=== PATIENT | male | born 1960 | race Caucasian/White ===

== ENCOUNTER → 2019-06-01 11:14 | Outpatient (CLI) | payer OTHER, SELFPAY ==
--- NOTE | 2019-06-01 | DI.MRI.S_ITS ---
PROCEDURE: MR SHOULDER RT WO CON INDICATIONS: Pain in right shoulder with decreased range of motion TECHNIQUE: Noncontrast oblique coronal T2 fast spin echo with fat saturation, oblique sagittal T1 spin echo and T2 fast spin echo with fat saturation, axial T1 spin echo and T2 fast spin echo with fat saturation through the shoulder. COMPARISON: None. FINDINGS: Image quality: Excellent. Rotator cuff: Tendinosis and low-grade articular surface and bursal surface partial-thickness tear involving distal supraspinatus and infraspinatus is seen. Tendinosis and low-grade intrasubstance partial-thickness tear involving distal subscapularis is also noted. No full-thickness rotator cuff tendon tear. Sagittal images demonstrate no significant rotator cuff muscle atrophy. Bones and bursae: No bone marrow contusions or fractures. Intraosseous cyst formation involving the posterior inferior glenoid is noted. Moderate acromioclavicular joint osteoarthritis and glenohumeral joint osteoarthritis is seen.. No pathologic subacromial-subdeltoid or subcoracoid bursal fluid is present. Capsule and soft tissues: In the absence of intra-articular contrast, there is suggestion of superior anterior labral tear from 12 to 3:00 position. There is also suggestion of inferior labral tear from 5 to 7:00 position. glenohumeral ligaments appear intact. The long head of the biceps tendon demonstrates normal location and morphology. The rotator interval appears normal, without fibrosis. The coracohumeral ligament is normal in thickness. IMPRESSION: 1. Moderate acromioclavicular joint and glenohumeral joint osteophytes. 2. Suggestion of superior anterior labral tear at 12 to 3:00 position an inferior labral tear at 5 to 7:00 position. 3. Tendinosis and low-grade articular and bursal surface partial-thickness tear involving distal supraspinatus and infraspinatus. Tendinosis and low-grade intrasubstance partial thickness involving distal subscapularis. No full-thickness rotator cuff tendon rupture. Dictated by: Cruz Cohn M.D. on 06/01/2019 at 14:41 Approved by: Cruz Cohn M.D. on 06/01/2019 at 14:45
== END ==
PROVIDERS: Visit Provider Family Medicine
DX: M25.511 Pain in right shoulder (principal); M19.011 Primary osteoarthritis, right shoulder; M25.711 Osteophyte, right shoulder
CPT/HCPCS: 73221

== ENCOUNTER → 2020-08-08 12:06 | Outpatient (CLI) | payer OTHER, SELFPAY ==
--- NOTE | 2020-08-08 | DI.US.S_ITS ---
PROCEDURE: US SCROTUM INDICATIONS: HYDROCELE UNSPECIFIED TECHNIQUE: Real-time scanning was performed of the scrotum and testicles, with image documentation. Color and pulse Doppler interrogation was performed of both testicles. COMPARISON: None. FINDINGS: Right: Testicle is normal in size at 5.0 x 3.0 x 3.0 cm, and homogenous in echotexture. Epididymis is normal in overall size and morphology. Large hydrocele.. Overlying scrotal skin is normal in thickness. Left: Testicle is normal in size at 4.8 x 4.4 x 3.1 cm, and homogeneous in echotexture. Epididymis is normal in overall size and morphology. Moderate hydrocele.. Overlying scrotal skin is normal in thickness. Doppler: Color and pulse Doppler demonstrate normal and symmetric arterial flow in both testicles. IMPRESSION: 1. Normal appearance of the testicles bilaterally. 2. Bilateral hydroceles, right greater than left. Dictated by: Vadim CANTU Interpreted: Joseph Grant MD on 08/08/2020 at 16:22 Approved by: Joseph Grant M.D. on 08/08/2020 at 17:01
== END ==
PROVIDERS: PCP Student in an Organized Health Care Education/Training Program; Referring Provider Student in an Organized Health Care Education/Training Program; Visit Provider Student in an Organized Health Care Education/Training Program
DX: N43.3 Hydrocele, unspecified (principal)
CPT/HCPCS: 76870

== ENCOUNTER → 2020-11-28 13:09 | Outpatient (CLI) | payer OTHER, SELFPAY ==
--- NOTE | 2020-11-28 | DI.RAD.S_ITS ---
PROCEDURE: FL BARIUM SWALLOW W AIR COMPARISON: None. INDICATIONS: Gastro-esophageal reflux disease without esophagitis. FINDINGS: Esophageal motility is normal. No hiatal hernia is found. Episodic slight gastroesophageal reflux was observed, extending only approximately 10 cm cephalad from the EG junction. There is no sign of esophageal erosions, inflammation, mass or stricture. The visualized upper stomach appears normal. IMPRESSION: Mild episodic spontaneous and elicited gastroesophageal reflux, without evidence of associated esophageal erosion, stricture or mass. No esophageal dysmotility is identified. The upper gastric margin visualized appears normal. Dictated by: Timothy Orr M.D. on 11/28/2020 at 14:27 Approved by: Timothy Orr M.D. on 11/28/2020 at 15:01
== END ==
PROVIDERS: PCP Student in an Organized Health Care Education/Training Program; Referring Provider Student in an Organized Health Care Education/Training Program; Visit Provider Student in an Organized Health Care Education/Training Program
DX: K21.9 Gastro-esophageal reflux disease without esophagitis (principal)
CPT/HCPCS: 74221

== ENCOUNTER → 2020-12-26 15:12 | Outpatient (CLI) | payer OTHER, SELFPAY ==
--- NOTE | 2020-12-26 15:15 | DI.RAD.S_ITS ---
PROCEDURE: XR SHOULDER LT MIN 2V INDICATIONS: LT SHOULDER PAIN TECHNIQUE: 3 views of the shoulder were acquired. COMPARISON: None. FINDINGS: Bones: No fractures or dislocations. No suspicious bony lesions. Visualized ribs appear intact. Soft tissues: No suspicious soft tissue calcifications. IMPRESSION: No acute fracture. No osseous lesion. If symptoms and/or clinical suspicion for pathology persist, further assessment with repeat, or advanced imaging (e.g., CT, MRI, or bone scan) may be helpful for further assessment. Dictated by: Ramsey Yi M.D. on 12/26/2020 at 17:00 Approved by: Ramsey Yi M.D. on 12/26/2020 at 17:00
== END ==
PROVIDERS: PCP Student in an Organized Health Care Education/Training Program; Referring Provider Student in an Organized Health Care Education/Training Program; Visit Provider Student in an Organized Health Care Education/Training Program
DX: M25.512 Pain in left shoulder (principal)
CPT/HCPCS: 73030

== ENCOUNTER → 2021-01-16 09:10 | Outpatient (CLI) | payer OTHER, SELFPAY ==
--- NOTE | 2021-01-16 | DI.MRI.S_ITS ---
PROCEDURE: MR SHOULDER LT WO CON INDICATIONS: Unspecified rotator cuff tear or rupture of left shoulder TECHNIQUE: Noncontrast oblique coronal T2 fast spin echo with fat saturation, oblique sagittal T1 spin echo and T2 fast spin echo with fat saturation, axial T1 spin echo and T2 fast spin echo with fat saturation through the shoulder. COMPARISON: [facility], CR, XR SHOULDER LT MIN 2V, 12/26/2020, 15:22. [facility], MR, MR SHOULDER RT WO CON, 06/01/2019, 11:41. FINDINGS: Image quality: Excellent. Rotator cuff: There is mild tendinopathy in the supraspinatus distally with mild peritendinous edema along the myotendinous junction anteriorly. The supraspinatus tendon appears grossly intact. The infraspinatus, subscapularis, and teres minor also appear intact. Sagittal images demonstrate no fatty muscle atrophy. Bones and bursae: No bone marrow contusions or fractures. There is moderate acromioclavicular joint degeneration with mild periarticular bone marrow edema including in the distal clavicle. The acromion demonstrates conventional anatomy, without an os acromiale. A small amount of pathologic subacromial-subdeltoid bursal fluid is present. Capsule and soft tissues: There is curvilinear tearing within the superior and posterosuperior labrum. Degenerative signal also demonstrated within the anterior inferior labrum. In the absence of intra-articular contrast, the glenohumeral ligaments appear intact. The long head of the biceps tendon demonstrates normal location and morphology. There is mild periarticular soft tissue edema along the axillary pouch and in the rotator interval. The coracohumeral ligament is normal in thickness. IMPRESSION: 1. No discrete rotator cuff tear. 2. Moderate acromioclavicular joint degeneration with periarticular bone marrow edema including in the distal clavicle. There is associated mild subacromial/subdeltoid bursitis and mild edema along the myotendinous junction of the supraspinatus anteriorly. Constellation of findings are suggestive of impingement in the appropriate clinical context. 3. Tearing of the superior and posterosuperior labrum. 4. Mild edema in the rotator interval and along the axillary pouch suggestive of capsulitis. Dictated by: Carlos Tellez M.D. on 01/16/2021 at 8:55 Approved by: Carlos Tellez M.D. on 01/16/2021 at 9:02
== END ==
PROVIDERS: PCP Student in an Organized Health Care Education/Training Program; Referring Provider Student in an Organized Health Care Education/Training Program; Visit Provider Student in an Organized Health Care Education/Training Program
DX: M75.102 Unspecified rotator cuff tear or rupture of left shoulder, not specified as traumatic (principal); S43.492A Other sprain of left shoulder joint, initial encounter; M19.012 Primary osteoarthritis, left shoulder; M75.52 Bursitis of left shoulder
CPT/HCPCS: 73221

== ENCOUNTER 2023-09-16 10:11 | Day surgery (SDC) | payer OTHER, SELFPAY ==
[2023-09-16 10:21] VITALS: BP 131/74; PULSE 50; RESP 16; TEMP 36.1; O2SAT 100; BMI 25.1
[2023-09-16] MEDS: LACTATED RINGERS 1,000 ML 150 ML IV (10:40)
--- NOTE | 2023-09-16 11:20 | PM.HP.1 ---
History of Present Illness History of Present Illness Date Patient Seen: 09/16/23 Chief complaint: Screening Colonoscopy Narrative: 63-year-old here for screening colonoscopy. Last colonoscopy 13 years ago normal. No family history of intestinal malignancy. Abdominal concerns today including abdominal pain unintentional weight loss, or anorexia. He endorses the occasional small amount of bright red blood per rectum. PFSH Social History household members: spouse Smoking Status: Never smoker alcohol intake: current Meds Home Medications and Allergies Home Medications Medication Instructions Recorded Confirmed Type sodium,potassium,mag sulfates 17.5 See Rx Instructions PO .COMPLEX 07/03/23 09/16/23 Rx gram-3.13 gram-1.6 gram oral soln #354 mL (Suprep Bowel Prep Kit) Allergies Allergy/AdvReac Type Severity Reaction Status Date / Time No Known Drug Allergies Allergy Verified 09/16/23 10:40 Exam Vital Signs (past 8 hours): - 09/16/23 10:21 Temperature 97 F L Pulse Rate 50 L Respiratory Rate 16 Blood Pressure 131/74 Pulse Oximetry 100 Oxygen Delivery Method Room Air Oxygen Delivery Method Room Air Narrative Exam Narrative: General adult man alert oriented no acute distress Chest nonlabored respiration Extremities warm well perfused Assessment & Plan Assessment & Plan narrative: The patient requires colorectal screening and colonoscopy is recommended. Technical details were discussed. Risks, benefits, alternatives explained. Risks including but not limited to myocardial infarction, aspiration, bleeding, pain, missed lesion, incomplete examination, need for further radiographic studies, colonic perforation, and need for major abdominal surgery were discussed. All questions were answered to their satisfaction, and they are in agreement with this plan.
[2023-09-16 11:54] VITALS: BP 113/75; PULSE 53; RESP 19; TEMP 36.6; O2SAT 95
[2023-09-16 11:59] VITALS: BP 115/79; PULSE 50; RESP 12; O2SAT 95
--- NOTE | 2023-09-16 12:00 | P.OP.COLON_ITS ---
Operative Date/Time/Diagnoses Date of procedure: 09/16/23 Time of procedure: 12:00 Pre-op diagnosis: Colorectal screening Procedure & Clinicians Study performed: Colonoscopy Same procedure as scheduled: Yes Indications: Colorectal screening Surgeon: Larry Brar Procedure Notes Procedure in detail: The history and physical was performed/updated and the patient is ASA class is 2. The procedure was discussed in detail with the patient. Potential risks complications including infection, bleeding, missed diagnosis, perforation, need for surgery, and were explained. Their questions were answered and informed consent was obtained. Patient was brought to the procedure room and placed standard monitoring equipment. The patient's vital signs were monitored continuously throughout the entire procedure. Prior to starting time-out was performed. The patient was placed in the left lateral recumbent position. Procedural sedation was administered by anesthesia. Examination began with a thorough inspection of the perianal area there was no evidence of fissures, fistulae, external hemorrhoids or cutaneous malignancy. The colonoscopy scope was then placed into the anal canal and was advanced to the cecum, which was identified by the ileocecal valve , the appendiceal orifice and the confluence of the taenia. The scope was then slowly withdrawn examining colon thoroughly in all directions, irrigating it of any residual stool. The scope was retroflexed within the rectum The patient tolerated the procedure well. They will be discharged once criteria are met. The prep was of good/excellent quality. The withdrawl time was 7 minutes. FINDINGS * No masses or polyps. * Tortuous colon. Required scope stiffening an external compression Specimen(s): none sent Post-procedure Recommendations: Colonoscopy in 10 years Disposition: same day surgery
[2023-09-16 12:04] VITALS: BP 115/78; PULSE 55; RESP 14; O2SAT 97
[2023-09-16 12:09] VITALS: BP 119/85; PULSE 48; RESP 21; O2SAT 96
[2023-09-16 12:14] VITALS: BP 119/78; PULSE 47; RESP 16; TEMP 36.9; O2SAT 97
== END 2023-09-16 12:29 | disposition home or self-care (01) ==
PROVIDERS: Surgery; PCP Family Medicine; Referring Provider Surgery; Visit Provider Surgery
PROC: 0DJD8ZZ Inspection of Lower Intestinal Tract, Via Natural or Artificial Opening Endoscopic (ICD-10-PCS; CPT 45378; principal; 2023-09-16 11:15)
DX: Z12.11 Encounter for screening for malignant neoplasm of colon (principal)
CPT/HCPCS: 45378; J2704